=== PATIENT | male | born 1985 | race African-American/Black ===

== ENCOUNTER 2018-05-18 03:35 | Emergency (ER) | payer MEDICAID ==
--- NOTE | 2018-05-18 03:43 | EDPHY ---
H & P Time Seen by Provider: 05/18/18 03:41 HPI/ROS: CHIEF COMPLAINT: Methamphetamine abuse HISTORY OF PRESENT ILLNESS: The patient is a 33-year-old man who was been using methamphetamine who is brought by police for medical clearance for nursing home. He was reporting any using methamphetamine and then confronted police. Once he was in the police car hit his head on the window. No contusion or laceration. No loss of consciousness. The patient denies any pain although he is intoxicated. Severity: Moderate Modifying factors: None REVIEW OF SYSTEMS: Unable to obtain secondary to condition EXAM: GENERAL: Confused, not cooperative HEAD: Atraumatic, normocephalic. No sign of significant injury. EYES: Pupils equal round and reactive to light, extraocular movements intact, sclera anicteric, conjunctiva are normal. ENT: TMs normal, nares patent, oropharynx clear without exudates. Moist mucous membranes. NECK: No tenderness, Normal range of motion, supple without lymphadenopathy or JVD. LUNGS: Breath sounds clear to auscultation bilaterally and equal. No wheezes rales or rhonchi. HEART: Regular rate and rhythm without murmurs, rubs or gallops. ABDOMEN: Soft, nontender, normoactive bowel sounds. No guarding, no rebound. No masses appreciated. BACK: No CVA tenderness, no spinal tenderness, step-offs or deformities EXTREMITIES: Normal range of motion, no pitting or edema. No clubbing or cyanosis. NEUROLOGICAL: Cranial nerves II through XII grossly intact. Normal speech, normal gait. 5/5 strength, normal movement in all extremities, normal sensation , normal reflexes PSYCH: Not cooperative SKIN: Warm, dry, normal turgor, no visible rashes or lesions. Source: Patient, Police, EMS Exam Limitations: Intoxication - Medical/Surgical History Other PMH: Methamphetamine abuse, alcoholism - Family History Significant Family History: No pertinent family hx - Social History Alcohol Use: Occasionally Drug Use: Other Medical Decision Making ED Course/Re-evaluation: The patient is uncooperative. There is no significant sign of injury. His vital signs are stable. He denies having any pain. I will discharge him to police custody for nursing home. Differential Diagnosis: Partial list of the Differential diagnosis considered include but were not limited to; head injury, concussion, intoxication and although unlikely based on the history and physical exam, I also considered infection, fracture. Departure - Departure Disposition: Law Enforcement/Court/Alf Clinical Impression: Methamphetamine abuse Condition: Fair Instructions: Methamphetamine Abuse (ED) Additional Instructions: Patient is medically clear for nursing home Referrals: NONE *PRIMARY CARE P,. [Primary Care Provider] - As per Instructions [facility],. [Clinic] - As per Instructions
[2018-05-18 04:13] VITALS: BP 147/106
== END 2018-05-18 04:18 ==
LOC: EDUNIT#
DX: F15.20 Other stimulant dependence, uncomplicated (principal)